=== PATIENT | female | born 2005 | race Caucasian/White ===

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

== ENCOUNTER 2024-01-06 06:37 | Outpatient (CLI) | payer BC, MEDICAID, SELFPAY ==
--- NOTE | 2024-01-06 07:00 | USCV_ITS ---
Awilda Smith Age: 18 Gender: F : 2005 Exam Date: 01/06/2024 07:00 Ordering Phys: Esther Barrera NP Technologist: Exam Location: [facility] [place] Indication: knot lt arm over iv site PROCEDURES: Venous duplex imaging was performed in bilateral upper extremities. The following venous structures were evaluated: internal jugular vein, subclavian vein, axillary vein, and brachial veins. In addition, the basilic vein, cephalic vein, radial vein, and ulnar vein. FINDINGS: The veins of the right upper extremity are readily compressible with normal venous flow dynamics including spontaneous flow, respiratory phasic variation and augmentation. No evidence of deep vein thrombosis or superficial thrombophlebitis in the right upper extremity. No evidence of deep vein thrombosis or superficial thrombophlebitis in the left upper extremity. CONCLUSIONS No evidence of bilateral upper extremity DVT. Dr. Nohelia Valenzuela DO (Electronically Signed) Final Date: 06 January 2024 10:37 S
== END 2024-01-06 06:38 | disposition home or self-care (01) ==
LOC: RAD 06:39
PROVIDERS: PCP Nurse Practitioner Family; Visit Provider Nurse Practitioner Family
DX: Z86.718 Personal history of other venous thrombosis and embolism (principal)
CPT/HCPCS: 93970

== ENCOUNTER → 2024-01-07 11:42 | Outpatient (BNVA) | payer MEDICAID, SELFPAY | PROVIDERS: PCP Nurse Practitioner Family; Visit Provider Nurse Practitioner Family | DX: R30.9 Painful micturition, unspecified (principal) | CPT/HCPCS: 81000; 87086 ==